=== PATIENT | female | born 1930 | race Two or more races ===

== ENCOUNTER 2017-06-19 09:50 | Outpatient (CLI) | payer MEDICARE, BC | END 2017-06-19 23:59 | disposition home health service (06) | LOC: WOU 09:50 | PROVIDERS: ATTEND Podiatrist Foot & Ankle Surgery | DX: I87.313 Chronic venous hypertension (idiopathic) with ulcer of bilateral lower extremity (principal); L97.322 Non-pressure chronic ulcer of left ankle with fat layer exposed; L97.812 Non-pressure chronic ulcer of other part of right lower leg with fat layer exposed; M79.661 Pain in right lower leg; M79.662 Pain in left lower leg; Z96.653 Presence of artificial knee joint, bilateral; Z85.3 Personal history of malignant neoplasm of breast; Z88.4 Allergy status to anesthetic agent; Z88.0 Allergy status to penicillin; Z87.828 Personal history of other (healed) physical injury and trauma | CPT/HCPCS: A6253 ×2; A6402 ×2; A6452; G0463 ==